=== PATIENT | male | born 1960 | race African-American/Black ===

== ENCOUNTER 2018-10-26 22:15 | Emergency (ER) | payer SELFPAY ==
[~2018-10-26] VITALS: Ht 170.2 cm; Wt 79.5 kg
[2018-10-26 22:23] VITALS: BP 173/112; PULSE 89; TEMP 97.1
[2018-10-26] MEDS ORDERED: MINIPRESS2 MG PO (22:29)
[2018-10-26] MEDS ORDERED: DULCOLAX STOOL100 MG PO (23:15)
== END 2018-10-26 23:23 | disposition home or self-care (01) ==
LOC: COL.ER 22:15
DX: K64.5 Perianal venous thrombosis (principal); F17.210 Nicotine dependence, cigarettes, uncomplicated

== ENCOUNTER 2018-10-30 07:49 | Emergency (ER) | payer SELFPAY ==
[~2018-10-30] VITALS: Ht 170.2 cm; Wt 81.8 kg
[~2018-10-30 07:49] MED LIST: DULCOLAX STOOL100 MG PO; MINIPRESS2 MG PO
[2018-10-30 07:57] VITALS: TEMP 97.7
[2018-10-30 09:08] VITALS: BP 148/106; PULSE 66
[2018-10-30] MEDS ORDERED: NORVASC 5MG5 MG/TAB PO (09:12)
== END 2018-10-30 09:57 | disposition home or self-care (01) ==
LOC: COL.ER 07:49
DX: K64.4 Residual hemorrhoidal skin tags (principal)

== ENCOUNTER 2019-01-22 19:22 | Emergency (ER) | payer SELFPAY ==
[~2019-01-22] VITALS: Ht 170.2 cm; Wt 81.8 kg
[~2019-01-22 19:22] MED LIST changes: +NORVASC 5MG5 MG/TAB PO
[2019-01-22 19:29] VITALS: TEMP 98.9
[2019-01-22 20:58] VITALS: BP 141/94; PULSE 76
== END 2019-01-22 20:58 | disposition home or self-care (01) ==
LOC: COL.ER 19:22
DX: S80.11XA Contusion of right lower leg, initial encounter (principal); V13.4XXA Pedal cycle driver injured in collision with car, pick-up truck or van in traffic accident, initial encounter